=== PATIENT | female | born 1985 | race Caucasian/White ===

== ENCOUNTER 2021-04-10 03:53 | Inpatient (IN) | payer OTHER, SELFPAY ==
[2021-04-10] VITALS (15 sets, daily range): BP systolic 97–121; BP diastolic 55–76; PULSE 69–105; RESP 16–19; TEMP 35.9–37.1; O2SAT 95–99; BMI 27.4
--- NOTE | ~2021-04-10 | CT_ITS ---
EXAMINATION: CT ABDOMEN AND PELVIS WITH CONTRAST CLINICAL INFORMATION: Periumbilical and right lower quadrant pain COMPARISON: None TECHNIQUE: Multidetector volumetric images were obtained from the superior aspect of the liver through the pubic symphysis following administration 85 mL of Omnipaque 350 intravenous contrast. Sagittal and coronal reformatted images were obtained on the technologist's workstation. Oral contrast: No This CT examination was performed using dose optimization techniques as appropriate, variously including the following: *Automated exposure control *Adjustment of mA and/or kV according to patient size (this includes techniques or standardized protocols for targeted exams where dose is matched to indication/reason for exam; i.e. extremities or head) *Use of iterative reconstruction technique DLP: 568 mGy-cm FINDINGS: LUNG BASES: There is bibasilar atelectasis and scarring. LIVER, GALLBLADDER, AND BILIARY TREE: The liver is normal in size, shape, and attenuation. No focal hepatic lesion or biliary ductal dilatation is present. The gallbladder is unremarkable with no evidence of radiopaque gallstones, gallbladder wall thickening, or obvious pericholecystic inflammatory changes. PANCREAS: Unremarkable. SPLEEN: Unremarkable. ADRENAL GLANDS: Unremarkable. KIDNEYS AND URETERS: The kidneys are normal in size, shape, and attenuation. No hydronephrosis, hydroureter, or calculi seen. No perinephric stranding. BLADDER: Unremarkable. GASTROINTESTINAL TRACT: There is scattered stool and gas seen throughout the colon without significant distention. The small bowel loops are normal caliber. The appendix measures 1 cm without appendicolith. There is mild the appendix haziness suspicious for early fat stranding. There is no appendicolith seen. ABDOMINAL WALL: No significant hernia is appreciated. LYMPH NODES: Normal. VASCULAR: Unremarkable. PELVIC VISCERA: A 1.8 cm right adnexal cyst with enhancing wall likely a corpus luteal cyst. There are uterus is retroverted with IUD well located within the endometrial canal. There is no free fluid. The left ovary is grossly unremarkable. OSSEOUS STRUCTURES: Unremarkable. CT/CT abdomen pelvis w con IMPRESSION: 1 cm distended appendix with minimal farhan appendix fat stranding at this time suggestive of early acute appendicitis. No appendicolith seen. Retroverted uterus with IUD within endometrial canal in good position. Small corpus luteal cyst right ovary.
--- NOTE | 2021-04-10 05:11 | ED.ABDPAIN ---
HPI - Abdominal Pain General Chief Complaint: Abdominal Pain Stated Complaint: abdominal pain Time Seen by Provider: 04/10/21 04:59 Source: patient Mode of arrival: ambulatory Limitations: no limitations History of Present Illness HPI narrative: Patient comes emergency room complaining of periumbilical pain and right lower quadrant pain starting last night. Patient states for the last 3 days, she has had multiple episodes of diarrhea, no vomiting, no abdominal pain. Yesterday, patient went out for a walk, when she returned to her house, she noticed that she had periumbilical pain. Patient complaining of nausea, no vomiting, no further diarrhea. Patient denies fever chills, no flank pain MD elicited complaint: abdominal pain Related Data Allergies Allergy/AdvReac Type Severity Reaction Status Date / Time No Known Allergies Allergy Verified 04/10/21 05:09 Review of Systems Review of Systems Constitutional : No Weight loss, No Fever, No Chills, No Night Sweats, No Fatigue, No Malaise ENT/Mouth : No Hearing loss, No Ear Pain, No Nasal Congestion, No Sinus Pain, No Hoarseness, No sore throat, No Rhinorrhea, No Swallowing Difficulty Eyes: No Eye Pain, No Swelling, No Redness, No Foreign Body, No Discharge, No Vision Changes Cardiovascular : No Chest Pain, No SOB, No Dyspnea on Exertion, No Orthopnea, No Edema, No Palpitations Respiratory : No Cough, No Sputum, No Wheezing, No Smoke Exposure, No Dyspnea Gastrointestinal : Complaining of Nausea, No Vomiting, reported several episodes of diarrhea, now resolved, No Constipation, complaining of periumbilical pain and right lower quadrant pain. No Hematochezia, No Melena Genitourinary : no irregular bleeding, No Dysuria, No Urinary Frequency, No Hematuria, No Urinary Incontinence, No Urgency, No Flank Pain, No Urinary Flow Changes, No Hesitancy Musculoskeletal : No joint pain, No Myalgias, No Joint Swelling Skin : No Skin Lesions, No rash Neuro : No Weakness, No Numbness, No Paresthesias, No Loss of Consciousness, No Dizziness, No Headache Psych : No Anxiety/Panic, No Depression, No SI/HI/AH/VH, No Social Issues, Heme/Lymph: No Bruising, No Bleeding,No Lymphadenopathy Endocrine : No Polyuria, No Polydipsia, No Temperature Intolerance Physical Exam Vital Signs: Vital Signs: Last Vital Signs Temp 98.2 F 04/10/21 07:29 Pulse 77 04/10/21 07:29 Resp 17 04/10/21 07:29 BP 104/57 L 04/10/21 07:29 Pulse Ox 98 04/10/21 07:29 Body Mass Index 27.4 Appearance: Alert. Oriented X3. No acute distress. Eyes: Pupils equal, round and reactive to light. ENT: Pharynx normal. Neck: Normal inspection. Neck supple. No lymph nodes noted. No crepitus CVS: Normal heart rate and rhythm. Pulses normal. Normal S1 and S2 Respiratory: No respiratory distress. Breath sounds normal. No Wheezing. No rales Abdomen: Soft tender to palpation over the periumbilical area and right lower quadrant, no guarding, positive rebound tenderness, positive pain at McBurney's point. No rigidity. No distention. Skin: Skin warm and dry. Normal skin color. Normal skin turgor. Extremities: No lower extremity edema. No lower extremity edema. No Lacerations. No Rash Neuro: Oriented X 3. No motor deficit. No sensory deficit. Moving all extermities. No slurred speech. Course Course Course Narrative: CT scan pending, appendicitis suspected. Sign out given to Dr. Wu [facility] - Abdominal Pain Lab Data Result diagrams: 04/10/21 05:24 04/10/21 05:48 Labs: Lab Results 04/10/21 04/10/21 Range/Units 05:24 05:48 WBC 11.6 H (4.8-10.8) X10*3/uL RBC 4.01 L (4.20-5.50) X10*6/uL Hgb 12.7 (12.0-16.0) g/dl Hct 35.7 L (37-47) % MCV 89.0 (80-98) fL MCH 31.7 (27.0-33.0) pg MCHC 35.6 H (31.0-35.0) g/dl RDW 12.5 (11.0-16.0) % Plt Count 252 (160-400) X10*3/uL MPV 10.0 (9.4-12.3) fL Immature Gran % (Auto) 0.4 (0.0-0.4) % Neut % (Auto) 82.8 H (45-73) % Lymph % (Auto) 10.4 L (20-40) % [place] % (Auto) 5.8 (2-11) % Eos % (Auto) 0.3 (0-4) % Baso % (Auto) 0.3 (0-2) % Lymph # (Auto) 1.2 (1.2-4.9) X10*3/uL [place] # (Auto) 0.7 (0.1-1.2) X10*3/uL Eos # (Auto) 0.0 (0.0-0.4) X10*3/uL Baso # (Auto) 0.0 (0.0-0.2) X10*3/uL Abs Immat Gran (auto) 0.05 H (0.00-0.03) X10*3/uL Absolute Neuts (auto) 9.6 H (2.0-8.3) X10*3/uL Absolute Nucleated RBC 0.000 (0.0-0.012) X10*3/uL Nucleated RBC % (auto) 0.0 (0.0-0.2) /100WBC Sodium 136 (135-145) mmol/L Potassium 3.4 (3.3-5.1) mmol/L Chloride 101 (96-108) mmol/L Carbon Dioxide 25 (22-29) mmol/L Anion Gap 13 (12-20) BUN 14 (9-16) mg/dL Creatinine 0.79 (0.5-1.4) mg/dL Estim Creat Clear Calc 97.0 Estimated GFR > 60 Random Glucose 109 (60-115) mg/dL Calcium 9.0 (8.4-10.2) mg/dL Total Bilirubin 1.1 H (0.0-1.0) mg/dL Direct Bilirubin 0.4 (0.0-0.5) mg/dL AST 14 (5-31) U/L ALT 13 (0-31) U/L Alkaline Phosphatase 50 (39-117) U/L Total Protein 6.2 L (6.5-8.0) g/dL Albumin 4.0 (3.5-5.0) g/dL Lipase 9 (8-78) U/L Beta HCG, Quant < 2 mIU/mL [facility] Past Medical History Medical History No known health problems Social History Social History Alcohol intake: never Patient Tobacco Use Status: Never used Tobacco Advance Directives: No Advance Directives Information Provided: No Patient : No
[2021-04-10 05:29] LABS: Basophils Percent Auto 0.3 % (0-2); Eosinophils Percent Auto 0.3 % (0-4); Hematocrit 35.7 % (37-47); Hemoglobin 12.7 g/dl (12.0-16.0); Imm Gran Abs Auto 0.05 X10*3/uL (0.00-0.03); Imm Gran Pct Auto 0.4 % (0.0-0.4); Lymphocytes Absolute Auto 1.2 X10*3/uL (1.2-4.9); Lymphocytes Percent Auto 10.4 % (20-40); MANUAL DIFF FLAG NO; Mean Corpuscular HGB Conc 35.6 g/dl (31.0-35.0); Mean Corpuscular Hemoglobin 31.7 pg (27.0-33.0); Monocytes Absolute Auto 0.7 X10*3/uL (0.1-1.2); Monocytes Percent Auto 5.8 % (2-11); Neutrophils Absolute Auto 9.6 X10*3/uL (2.0-8.3); Neutrophils Percent Auto 82.8 % (45-73); Platelet Count 252 X10*3/uL (160-400); Red Blood Count 4.01 X10*6/uL (4.20-5.50); Red Cell Distribution Width 12.5 % (11.0-16.0); White Blood Count 11.6 X10*3/uL (4.8-10.8)
[2021-04-10] MEDS: 0.9 % Sodium Chloride 1,000 ML 999 ML IVCONT ×2 (05:33→09:36)
[2021-04-10] MEDS: ondansetron HCL 4 MG/2 ML VIAL IVPUSH (05:33)
[2021-04-10] MEDS: Ketorolac Tromethamine 30 MG/ML VIAL IVPUSH (05:33)
--- NOTE | 2021-04-10 05:35 | PC.NURSE ---
PT MEDICATED PER MAR, AWAITING TESTING. AWARE OF PLAN OF CARE.
[2021-04-10 06:21] LABS: Alanine Aminotransferase 13 U/L (0-31); Alkaline Phosphatase 50 U/L (39-117); Anion Gap 13 (12-20); Aspartate Amino Transferase 14 U/L (5-31); Bilirubin Direct 0.4 mg/dL (0.0-0.5); Bilirubin Total 1.1 mg/dL (0.0-1.0); Blood Urea Nitrogen 14 mg/dL (9-16); Carbon Dioxide 25 mmol/L (22-29); Chloride 101 mmol/L (96-108); Estimated Glomerular Filt Rate > 60; Glucose Random 109 mg/dL (60-115); Lipase 9 U/L (8-78); Potassium 3.4 mmol/L (3.3-5.1); Sodium 136 mmol/L (135-145); Total Protein 6.2 g/dL (6.5-8.0)
[2021-04-10 06:27] LABS: HCG Quantitative < 2 mIU/mL
--- NOTE | 2021-04-10 08:09 | PC.NURSE ---
iv to l ac d/c'd by this rn due to puffiness and slight disc. new iv placed to r ac, #20.
[2021-04-10 08:15] LABS: Glucose Urine UA NEG (NEG); Leukocyte Esterase Urine NEG (NEG); Nitrite Urine NEG (NEG); Specific Gravity - Urine >= 1.030 (1.005-1.025); Urine Blood TRACE (NEG); Urine Ketones 5 MG/DL (NEG); Urine Protein NEG (NEG-TRACE)
[2021-04-10 08:19] LABS: UPreg QC Valid YES; Urine Pregnancy NEGATIVE (NEGATIVE)
[2021-04-10 08:20] LABS: Appearance Urine HAZY; Color Urine YELLOW
[2021-04-10 08:25] LABS: Amorphous Sediment Urine 1+ /LPF; Mucus Urine 2+ /LPF; Squamous Epithelial Cell Urine 1+ /LPF; WBC Urine 0 /HPF (0-4)
[2021-04-10] MEDS: iohexoL 350 MG/ML 100 ML INFUS..BTL IV (08:30)
[2021-04-10] MEDS: fentaNYL citrate/PF 100 MCG/2 ML VIAL 25 MCG IVPUSH (09:36)
[2021-04-10] MEDS: Piperacillin Sodium/Tazobactam 3.375 GM in 0.9 % Sodium Chloride 50 ML IV (09:47)
--- NOTE | 2021-04-10 10:05 | HE.PHANOTE ---
Med rec completed As [facility] does not carry the form of methypehnidate she takes at home, pt states she is ok with not taking it while she is in house
--- NOTE | 2021-04-10 10:49 | PC.NURSE ---
pt seen by dr. parsons (surgeon), pt/family aware of plan of care for admission/surgery.
--- NOTE | 2021-04-10 10:57 | PM.HPGS ---
History of Present Illness History of Present Illness Date of Service: 04/10/21 Chief complaint: abdominal pain Narrative: Tracy Castano is a 36 year old female presented with complaints of abdominal pain in the lower abdomen is beginning last night. The pain is now localized to the right lower quadrant associated with nausea and vomiting. She denies anorexia currently a mainly complains of the pain in the right lower quadrant. She presented to the emergency department this morning and was noted to be tender in the right lower quadrant. Laboratories reveal a elevated the WBC of [address] of the abdomen and pelvis revealed inflammation of the appendix without a fecalith or fluid collection. Findings are consistent with early acute appendicitis. She denies a previous history of similar pain. Review of Systems Constitutional: Constitutional: Denies chills, Denies fever(s), Denies headache(s) and Denies poor appetite ENT: Denies dizziness and Denies headache(s) Cardiovascular: Cardiovascular: Denies chest pain, Denies rapid heart rate, Denies palpitations and Denies slow heart rate Respiratory: Respiratory: Denies chest congestion, Denies cough, Denies pain on inspiration and Denies wheezing Gastrointestinal: Gastrointestinal: Denies abdominal pain, Denies bloating, Denies change in stool character, Denies constipation, Denies diarrhea, Denies nausea, Denies vomiting and Denies hematemesis Musculoskeletal: Musculoskeletal: Denies back pain, Denies arthralgias, Denies joint swelling and Denies numbness Integumentary/Breasts: Skin/Breast: Denies change in pigmentation, Denies erythema and Denies rash Neurologic: Denies dizziness, Denies headache(s) and Denies numbness Psychiatric: Psychiatric: Denies anxiety and Denies depression Endocrine: Endocrine: Denies palpitations Hematologic/Lymphatic: Hematologic/Lymphatic: Denies easy bleeding, Denies easy bruising and Denies lymphadenopathy Allergic/Immunologic: Allergic/Immunologic: Denies wheezing PMFSH Past Medical History Medical History No known health problems Social History Social History Alcohol intake: never Patient Tobacco Use Status: Never used Tobacco Advance Directives: No Advance Directives Information Provided: No Patient : No Meds Allergies Allergy/AdvReac Type Severity Reaction Status Date / Time No Known Allergies Allergy Verified 04/10/21 05:09 Active Medications: Current Medications Generic Name Dose Route Start Last Admin Trade Name Freq PRN Reason Stop Dose Admin Pharmacy Consult 1 each 04/10/21 09:29 Consult Rx Perform Med Rec MISCELLANE ONCE PRN Consult order Home Medications Medication Instructions Recorded Confirmed Last Taken Type methylphenidate HCl 1 tab PO QAM 04/10/21 04/10/21 04/08/21 History Physical Exam Vital Signs: Vital Signs: Last Vital Signs Temp 98.6 F 04/10/21 09:48 Pulse 69 04/10/21 10:56 Resp 17 04/10/21 10:56 BP 101/62 04/10/21 10:56 Pulse Ox 99 04/10/21 10:56 Body Mass Index 27.4 Const: General: cooperative, comfortable and well developed Nutritional Appearance: well nourished Orientation/consciousness: patient oriented x3 Eyes: Sclerae: sclerae normal EOM: EOMs intact bilaterally Neck: Neck: Yes normal visual inspection Resp: Effort & Inspection: normal respiratory effort, no cough, no respiratory distress and no stridor Cardio: Jugular venous distension: no JVD GI: Inspection: Yes normal to inspection Palpation (GI): Soft to palpation, Tenderness to palpation present (GI) in the RLQ and at McBurney's point, no guarding, not rigid and No Rebound tenderness present Skin: General skin exam: dry skin Rashes: no rashes Neuro: General: patient oriented x3 and no focal motor deficits Extrem: General: Yes full ROM and Yes no clubbing, cyanosis or edema Psych: Appearance: grossly normal Results Results Labs: Short CBC 04/10/21 Range/Units 05:24 WBC 11.6 H (4.8-10.8) X10*3/uL Hgb 12.7 (12.0-16.0) g/dl Hct 35.7 L (37-47) % Plt Count 252 (160-400) X10*3/uL BMP 04/10/21 05:48 Sodium 136 Potassium 3.4 Chloride 101 Carbon Dioxide 25 BUN 14 Creatinine 0.79 Calcium 9.0 Liver Function 04/10/21 Range/Units 05:48 Total Bilirubin 1.1 H (0.0-1.0) mg/dL Direct Bilirubin 0.4 (0.0-0.5) mg/dL AST 14 (5-31) U/L ALT 13 (0-31) U/L Alkaline Phosphatase 50 (39-117) U/L Albumin 4.0 (3.5-5.0) g/dL Urine 04/10/21 04/10/21 Range/Units 08:02 08:02 Urine Color YELLOW Urine Appearance HAZY Urine pH 6.0 (5.0-8.0) Ur Specific [place] >= 1.030 H (1.005-1.025) Urine Protein NEG (NEG-TRACE) MG/DL Urine Glucose (UA) NEG (NEG) MG/DL Urine Test NEGATIVE (NEGATIVE) Assessment and Plan (1) Acute appendicitis: Qualifiers: Acute appendicitis type: with localized peritonitis Appendicitis abscess presence: without abscess Appendicitis gangrene presence: without gangrene Appendicitis perforation presence: without perforation Qualified Code(s): K35.30 - Acute appendicitis with localized peritonitis, without perforation or gangrene Status: Acute 36-year-old female patient previously healthy presenting with complaints of abdominal pain of 24 hours duration. Pain is mainly located in the right lower quadrant and is associated with nausea and vomiting. Workup including CT of the abdomen and pelvis reveals a thickened appendix suggestive of acute appendicitis. We discussed options for management of early acute appendicitis including IV antibiotics verses laparoscopic or possible open appendectomy. After discussion of the risks, alternatives, and benefits, she wishes to proceed with a laparoscopic or possible open appendectomy. After discussion of the procedure, risks and alternatives, she consents to the surgery. She will be added onto the operative schedule for today. Procedures Date of Service Date of Service: 04/10/21
--- NOTE | 2021-04-10 11:02 | MHC.SHP ---
Pre-Procedural Eval Section A The patient is an INPATIENT: Yes Section B Chief Complaint: abdominal pain Allergies: Allergies Allergy/AdvReac Type Severity Reaction Status Date / Time No Known Allergies Allergy Verified 04/10/21 05:09 Plan Diagnosis/Plan: Unchanged I have reviewed the history and physical and performed a pertinent physical examination on my patient. No changes have occurred unless specified.
[2021-04-10 11:48] LABS: INTERNATIONAL NORM RATIO 1.1 (0.9-1.1); Prothrombin Time 13.4 SEC (10.8-13.0)
[2021-04-10 11:51] LABS: Partial Thromboplastin Time 31.7 SEC (24.1-38.0)
[2021-04-10 12:13] LABS: COVID-19 Test Negative (Negative); IDNOW Serial# 9DD0AD1C
--- NOTE | 2021-04-10 13:14 | PC.NURSE ---
nurse to nurse given to rabia (pacu), pt/family aware of plan of care for surgery later today.
--- NOTE | 2021-04-10 13:17 | PC.NURSE ---
pt last meal was 1600 yesterday 04/09/21
--- NOTE | 2021-04-10 13:28 | PC.NURSE ---
nurse to nurse given to stuart rn, pt/ aware of plan of care for admission/surgery.
--- NOTE | 2021-04-10 14:02 | PC.NURSE ---
this rn spoke with leslie fowler (rn) who was asked to update stuart (rn) that the pt went to pre-op (pacu) for surgery then pt will be transferred to the floor.
--- NOTE | 2021-04-10 14:24 | HO.ANESPROP2 ---
[facility] Active Problems Active Problems: All Active Problems (Updated 04/10/21 @ 09:33 by Nadia Wu DO) Acute appendicitis (Acute) Past Medical History Medical History No known health problems Social History Social History Alcohol intake: never Patient Tobacco Use Status: Never used Tobacco Use of substances other than those prescribed or required for medical reasons: No Are you DNR?: No Advance Directives: No Advance Directives Information Provided: No Patient : No Meds Allergies Allergy/AdvReac Type Severity Reaction Status Date / Time No Known Allergies Allergy Verified 04/10/21 05:09 Active Medications: Current Medications Generic Name Dose Route Start Last Admin Trade Name Freq PRN Reason Stop Dose Admin Pharmacy Consult 1 each 04/10/21 09:29 Consult Rx Perform Med Rec MISCELLANE ONCE PRN Consult order Home Medications Medication Instructions Recorded Confirmed Last Taken Type methylphenidate HCl 1 tab PO QAM 04/10/21 04/10/21 04/08/21 History Exam Exam Date and Time: April 10, 2021 1424 Height,Weight and Vital Signs: Height 5 ft 4 in Weight 72.575 kg Last Vital Signs Temp 97.5 F 04/10/21 14:13 Pulse 71 04/10/21 14:13 Resp 16 04/10/21 14:13 BP 104/67 04/10/21 14:13 Pulse Ox 98 04/10/21 14:13 Pertinent Lab Results Pertinent Lab Results: Laboratory Tests 04/10/21 04/10/21 04/10/21 05:24 05:48 08:02 WBC 11.6 H RBC 4.01 L Hgb 12.7 Hct 35.7 L MCV 89.0 MCH 31.7 MCHC 35.6 H RDW 12.5 Plt Count 252 MPV 10.0 Immature Gran % (Auto) 0.4 Neut % (Auto) 82.8 H Lymph % (Auto) 10.4 L [place] % (Auto) 5.8 Eos % (Auto) 0.3 Baso % (Auto) 0.3 Lymph # (Auto) 1.2 [place] # (Auto) 0.7 Eos # (Auto) 0.0 Baso # (Auto) 0.0 Abs Immat Gran (auto) 0.05 H Absolute Neuts (auto) 9.6 H Absolute Nucleated RBC 0.000 Nucleated RBC % (auto) 0.0 PT INR APTT Sodium 136 Potassium 3.4 Chloride 101 Carbon Dioxide 25 Anion Gap 13 BUN 14 Creatinine 0.79 Estim Creat Clear Calc 97.0 Estimated GFR > 60 Random Glucose 109 Calcium 9.0 Total Bilirubin 1.1 H Direct Bilirubin 0.4 AST 14 ALT 13 Alkaline Phosphatase 50 Total Protein 6.2 L Albumin 4.0 Lipase 9 Beta HCG, Quant < 2 Urine Color YELLOW Urine Appearance HAZY Urine pH 6.0 Ur Specific [place] >= 1.030 H Urine Protein NEG Urine Glucose (UA) NEG Urine Ketones 5 Urine Blood TRACE Urine Nitrite NEG Ur Leukocyte Esterase NEG Urine RBC 1-4 Urine WBC 0 Ur Squamous Epith Cells 1+ Amorphous Sediment 1+ Urine Bacteria NONE Urine Mucus 2+ Urine Test COVID-19 (RAY) COVID-[place] 04/10/21 04/10/21 04/10/21 08:02 11:34 11:37 WBC RBC Hgb Hct MCV MCH MCHC RDW Plt Count MPV Immature Gran % (Auto) Neut % (Auto) Lymph % (Auto) [place] % (Auto) Eos % (Auto) Baso % (Auto) Lymph # (Auto) [place] # (Auto) Eos # (Auto) Baso # (Auto) Abs Immat Gran (auto) Absolute Neuts (auto) Absolute Nucleated RBC Nucleated RBC % (auto) PT 13.4 H INR 1.1 APTT 31.7 Sodium Potassium Chloride Carbon Dioxide Anion Gap BUN Creatinine Estim Creat Clear Calc Estimated GFR Random Glucose Calcium Total Bilirubin Direct Bilirubin AST ALT Alkaline Phosphatase Total Protein Albumin Lipase Beta HCG, Quant Urine Color Urine Appearance Urine pH Ur Specific [place] Urine Protein Urine Glucose (UA) Urine Ketones Urine Blood Urine Nitrite Ur Leukocyte Esterase Urine RBC Urine WBC Ur Squamous Epith Cells Amorphous Sediment Urine Bacteria Urine Mucus Urine Test NEGATIVE COVID-19 (RAY) Negative COVID-19 [employer] See Note Airway Mallampati Class: I TM Dist: >3cm Neck ROM: Full Loose/Missing/Broken Teeth: No Heart: RRR Lungs: CTA Assessment and Plan Assessment Anesthesia Assessment: Anesthesia Plan Discussed and Chart Reviewed Final Anesthetic Review NPO: Yes ASA Class: I Final Preanesthetic Review: Meds/Allgs Chart Reviewed, Consent Obtained/Reviewed and Anes Risks/Benef Reviewed Patient Risk: Low Procedure Risk: Intermediate Anesthetic Plan Anesthetic Plan: GA Disposition: Standard PACU
--- NOTE | 2021-04-10 16:21 | P.OP_ITS ---
Operative Note Operative Note Date of Service: 04/10/21 Narrative: Preoperative diagnosis: Acute appendicitis Postoperative diagnosis: Same Procedure: Laparoscopic appendectomy Surgeon: Stone Sampson MD Past Due Accounts Clerk: No physician Anesthesia: General endotracheal Indications for procedure: 36-year-old female patient presenting with complaints of abdominal pain in the right lower quadrant found to have acute appendicitis by CT abdomen pelvis. Operative findings: Acute appendicitis without rupture or abscess Specimen: Appendix Estimated blood loss: 2 mL Complications: None Procedure details: Patient was brought to the OR and placed in a supine position. After administering general anesthesia the patient's abdomen was prepped with ChloraPrep and draped in a sterile fashion. A surgical time-out was called and consent confirmed. Patient received preoperative antibiotics and Venodyne boots were in place. Local anesthesia consisting of 0.25% Sensorcaine with epinephrine was infiltrated in periumbilical region. A 5 mm incision was made below the umbilicus and carried down through subcutaneous tissue. A Veress needle was then inserted while elevating abdominal cavity with towel clips. After a positive drop test the abdomen was insufflated to a pressure of 15 mm of mercury. The Veress needle was removed and a 5 mm trocar inserted. The camera was then inserted in the abdomen explored. A 2nd 5 mm trocars placed in the lower midline. A 12 mm trocar was then placed in the left lower quadrant. The patient was then placed in a Trendelenburg position and rotated to the left. The appendix was identified in the right lower quadrant and brought up using blunt dissecting clamps. The mesentery of the appendix was then divided using the LigaSure. The appendiceal artery was cauterized and divided using the LigaSure. Dissection was continued down to the base of the cecum. An Endo-FRANK stapler with a purple reload was then used to divide the appendix at the base with the cecum. The appendix was then placed in Endo-Catch bag and brought out through the left lower quadrant incision. The abdomen was then irrigated with saline solution and suctioned dry. Wounds were checked for hemostasis. CO2 was then evacuated from the abdominal cavity and all trocars removed. Skin was closed at all incisions using a subcuticular 4-0 Polysorb suture. Steri- Strips 2 x 2 gauze and Tegaderm were then applied. The patient tolerated the procedure well. Sponge, instrument, needle counts reported as correct. The patient was transferred to PACU in stable condition.
[2021-04-10] MEDS: Lactated Ringers 1,000 ML 100 ML IVCONT (17:09)
[2021-04-10] MEDS: 0.9 % Sodium Chloride Flush 3 ML SYRINGE IVFLUSH (17:10)
[2021-04-10] MEDS: oxyCODONE HCl Immed Release 5 MG TABLET PO (18:05)
[2021-04-11] VITALS: BP 94/53; PULSE 73; RESP 16; TEMP 36.3; O2SAT 96
[2021-04-11] MEDS: Lactated Ringers 1,000 ML 100 ML IVCONT (02:29)
[2021-04-11 03:02] VITALS: BP 103/55; PULSE 69; RESP 16; TEMP 36.4; O2SAT 96
[2021-04-11] MEDS: oxyCODONE HCl Immed Release 5 MG TABLET PO (03:09)
[2021-04-11 04:51] VITALS: RESP 20
[2021-04-11 08:00] VITALS: BP 105/69; PULSE 70; RESP 16; TEMP 36.3; O2SAT 94
--- NOTE | 2021-04-11 08:02 | P.DS_ITS ---
DS: Providers Provider Date of Service: 04/11/21 Date of admission: 04/10/21 11:08 Date of discharge: 04/11/21 Primary care physician: Eliseo Physician Admitting clinician: Stone Sampson Discharging clinician: Stone Sampson DS: Diagnosis Discharge Diagnosis (1) Acute appendicitis: Status: Acute DS: Medications Discharge Medications Home Medications: Home Medications Medication Instructions Recorded Confirmed methylphenidate HCl 1 tab PO QAM 04/10/21 04/10/21 Previous Rx's Medication Instructions Recorded oxycodone 5 mg PO Q6H PRN #14 tab 04/11/21 DS: Summary Hospital Course Hospital Course: Tracy Castano is a 36 year old female presented with complaints of abdominal pain in the lower abdomen is beginning of 1 day duration. The pain was localized to the right lower quadrant associated with nausea and vomiting. She denied anorexia and mainly complained of the pain in the right lower quadrant. She presented to the emergency department on 04/10/2021 and was noted to be tender in the right lower quadrant. Laboratories reveal a elevated the WBC of [address] of the abdomen and pelvis revealed inflammation of the appendix without a fecalith or fluid collection. Findings are consistent with early acute appendicitis. She denies a previous history of similar pain. The patient was admitted to the surgical service and arrangements made for a laparoscopic appendectomy. This was performed on the day of admission, 04/10/2021. Operative findings were consistent with acute appendicitis without rupture. She tolerated the laparoscopic appendectomy well and was able to tolerate a regular diet on the evening of surgery. She denied nausea or vomiting. On postoperative day 1, the patient is awake and alert with minimal incisional pain. She tolerated regular diet without nausea or vomiting and denied fever or chills. She was able to ambulate and is comfortable on oral pain medications. Patient is to be discharged to home today and will follow up in the office in approximately 1 week for wound examination. She should call for fever, chills, nausea, vomiting, or increased abdominal pain. Time Spent with Patient Time attestation: Total time spent providing and/or coordinating discharge services: Discharge coordination time: Less than 30 minutes Quality: Stroke Does the patient have a stroke diagnosis?: No Physical Exam Vital Signs: Vital Signs: Last Vital Signs Temp 97.5 F 04/11/21 03:02 Pulse 69 04/11/21 03:02 Resp 20 06/03/21 04:51 BP 103/55 L 04/11/21 03:02 Pulse Ox 96 04/11/21 03:02 Body Mass Index 27.4 Const: General: cooperative, comfortable and well developed GI: Other: Incisions clean, dry, and intact. Inspection: Yes normal to inspection Skin: Other: Warm, dry, no rash Extrem: General: Yes no clubbing, cyanosis or edema DS: Data Data Completed and Pending Pending studies at discharge: Pending at discharge 04/10/21 16:03 Surgical [PTH] Routine Labs on day of discharge: Laboratory Results - last 24 hr 04/10/21 04/10/21 04/10/21 08:02 08:02 11:34 PT INR APTT Urine Color YELLOW Urine Appearance HAZY Urine pH 6.0 Ur Specific [place] >= 1.030 H Urine Protein NEG Urine Glucose (UA) NEG Urine Ketones 5 Urine Blood TRACE Urine Nitrite NEG Ur Leukocyte Esterase NEG Urine RBC 1-4 Urine WBC 0 Ur Squamous Epith Cells 1+ Amorphous Sediment 1+ Urine Bacteria NONE Urine Mucus 2+ Urine Test NEGATIVE COVID-19 (RAY) Negative COVID-19 Clin Com See Note 04/10/21 11:37 PT 13.4 H INR 1.1 APTT 31.7 Urine Color Urine Appearance Urine pH Ur Specific [employer] [place] Urine Protein Urine Glucose (UA) Urine Ketones Urine Blood Urine Nitrite Ur Leukocyte Esterase Urine RBC Urine WBC Ur Squamous Epith Cells Amorphous Sediment Urine Bacteria Urine Mucus Urine Test COVID-19 (RAY) COVID-19 Clin Com Discharge Plan Discharge Patient Disposition: Home, Self-Care Discharge Diagnosis: Acute appendicitis Referrals: Stone Sampson MD [Physician] - 1 Week Physician,None [Primary Care Provider] - 1 Week Discharge Medications: New oxycodone 5 mg tablet 5 mg PO Q6H PRN (Reason: pain) Qty: 14 RF: 0 Continued methylphenidate HCl 36 mg tablet extended release 24hr 1 tab PO QAM RF: 0 Discharge Orders: Discharge Order (Routine); Ordered 04/11/21 Ordered By: Stone Sampson Diet: advance to usual diet Activity on Discharge: No heavy lifting Stand Alone Forms: Patient Portal Discharge page Activity Restrictions/Additional Instructions: No lifting > 10 pounds for 2 weeks No driving for one week Ice to the incision x 24 hours Remove dressing in 3 days Follow up in office in one week. Care Plan Goals: Return to normal diet and activity Health Concerns: Acute appendicitis Plan of Treatment: Laparoscopic appendectomy on 04/10/2021 Assessment: Acute appendicitis Patient Instructions: Laparoscopic Appendectomy (DC) Discharge Date/Time: 04/11/21 09:15
--- NOTE | 2021-04-11 08:02 | P.PNGS_ITS ---
Subjective Subjective Date of Service: 04/11/21 Interval history: Patient awake and alert, reports mild incisional pain but generally feels improved. Denies nausea or vomiting. Was able to tolerate a regular diet last night without increased symptoms. Physical Exam Vital Signs: Vital Signs: Last Vital Signs Temp 97.5 F 04/11/21 03:02 Pulse 69 04/11/21 03:02 Resp 20 04/11/21 04:51 BP 103/55 L 04/11/21 03:02 Pulse Ox 96 04/11/21 03:02 Body Mass Index 27.4 Const: General: cooperative, healthy appearing, comfortable, no acute distress, alert and awake Resp: Effort & Inspection: normal respiratory effort, no stridor and not tachypneic Auscultation: no wheezes GI: Other: Incisions in the lower abdomen are clean, dry, and intact. No redness or discharge. Skin: Other: Warm, dry, no rash Extrem: General: Yes normal to inspection Progress Note: A&P Assessment and plan (1) Acute appendicitis: Status: Acute Assessment and Plan: Patient is postoperative day 1 status post laparoscopic appendectomy. She tolerated the procedure well and her wounds are healing nicely. She will be discharged to home today and should follow up in the office in approximately 1 week. A prescription for oxycodone has been sent to her pharmacy. She should avoid lifting greater than 10 lb for the next 2 weeks. She may resume regular diet as tolerated. She should return for fever, chills, nausea, vomiting, or increased abdominal pain. Fall Risk Details Current Medications: Current Medications Generic Name Dose Route Start Last Admin Trade Name Freq PRN Reason Stop Dose Admin Acetaminophen 650 mg 04/10/21 17:00 Acetaminophen 325 Mg Tablet PO Q6H PRN Pain, Mild (Pain Scale 1-3) Lactated Ringer's 1,000 mls @ 100 mls/hr 04/10/21 17:00 04/11/21 02:29 Lr IVCONT 100 mls/hr .Q10H CHAN Administration Morphine Sulfate 3 mg 04/10/21 17:00 Morphine Sulfate 4 Mg/Ml Cartridge IVPUSH Q3H PRN Pain, Severe (Pain Scale 7-10) Ondansetron HCl 4 mg 04/10/21 17:00 Ondansetron Hcl 4 Mg/2 Ml Vial IVPUSH Q8H PRN Nausea and Vomiting Oxycodone HCl 5 mg 04/10/21 17:00 04/11/21 03:09 Oxycodone Hcl Immed Release 5 Mg Tablet PO 5 mg Q6H PRN Administration Pain, Moderate (Pain Scale 4-6 Pharmacy Consult 1 each 04/10/21 09:29 Consult Rx Perform Med Rec MISCELLANE ONCE PRN Consult order Sodium Chloride 3 ml 04/10/21 17:00 04/11/21 07:24 0.9 % Sodium Chloride Flush 3 Ml Syringe IVFLUSH Not Given QSHIFT [facility] Zolpidem Tartrate 5 mg 04/10/21 17:00 Zolpidem Tartrate 5 Mg Tablet PO BEDTIME PRN Insomnia Time Spent With Patient Time: Total time spent is greater than 50% in coordination of care (as documented) at patient's floor/unit and/or counseling patient: Time with patient: 15 - 24 minutes Procedures Date of Service Date of Service: 04/11/21
--- NOTE | 2021-04-11 08:14 | MHC.CM.PN ---
PT WILL DC HOME TODAY WITH NO SERVICES
--- NOTE | 2021-04-12 06:40 | HO.POSTANES ---
Post Anesthesia Evaluation Post Anesthesia Evaluation Vital Signs: patient seen 04/11/21 at 730am Anesthesia: General Endotracheal-GETA Mental Status: Awake Pain Control: Satisfactory Nausea/Vomiting: None Hydration: Adequate Anesthesia-Related Issues: No Anes. Related Issues
== END 2021-04-11 09:15 | disposition home or self-care (01) | DRG 234 ==
LOC: HO.ED 10:55 → HO.EDOVER 11:47 → HO.S3 12:38
PROVIDERS: Emergency Medicine; Admitting Provider Surgery; Emergency Provider Emergency Medicine; Visit Provider Surgery
PROC: 0DTJ4ZZ Resection of Appendix, Percutaneous Endoscopic Approach (ICD-10-PCS; CPT 44970; principal; 2021-04-10 14:50)
DX: K35.30 Acute appendicitis with localized peritonitis, without perforation or gangrene (principal); Z20.822 Contact with and (suspected) exposure to COVID-19; Z79.899 Other long term (current) drug therapy
CPT/HCPCS: 44970; 36415; 74177; 80048; 80076; 81001; 81025; 83690; 84702; 85025; 85610; 85730; 87635; 88304; 96365; 96375; 99024; 99285; J0131; J1100; J1885; J2250; J2405; J2543; J3010; Q9967

== ENCOUNTER → 2021-04-18 09:46 | Outpatient (BNVA) | payer OTHER, SELFPAY | PROVIDERS: Visit Provider Surgery ==

== ENCOUNTER 2025-05-17 08:26 | Emergency (ER) | payer OTHER, SELFPAY ==
--- NOTE | ~2025-05-17 | XR_ITS ---
EXAMINATION: XR FOOT 1-2 VIEWS RIGHT HISTORY: laceration, no movement COMPARISON: There are no prior studies available for comparison. FINDINGS: Three views of the right foot are submitted. Osseous mineralization is normal. There is no fracture or dislocation. The joint spaces are preserved. The soft tissues are unremarkable. XR/XR foot RT 2V IMPRESSION: Unremarkable examination of the right foot. Electronically signed by: Jorge A Marcos MD 05/17/2025 09:35 AM EDT
[2025-05-17 08:35] VITALS: BP 139/83; PULSE 88; RESP 16; TEMP 36.4; O2SAT 98; BMI 25.1
--- NOTE | 2025-05-17 09:42 | ED_ITS ---
HPI - General Adult General Chief complaint: Extremity Injury, Lower Stated complaint: Foot injury Time Seen by Provider: 05/17/25 09:36 Source: patient Mode of arrival: ambulatory Limitations: no limitations History of Present Illness ED Provider: Viktoria Martinez PA-C HPI narrative: Patient is a 40 year old assigned female at with no reported medical history presenting to the emergency department today with worsening left foot pain / loss of great toe function. Patient states that on 05/13/2025 she dropped a kitchen knife on her left foot and went to an urgent care where she had 3 sutures placed. Patient states that since then her left great toe has had decreased ROM and the pain continues. Patient denies any dizziness, lightheadedness, abdominal pain, nausea, vomiting, fever, chills, blurry vision, double vision, loss of vision, chest pain, difficulty breathing, shortness of breath, back pain, night sweats, pain with urination, increased urinary frequency, increased urinary urgency, blood in her urine or stool, syncope or a near syncopal episode, bowel incontinence, bladder incontinence, or any other complaints at this time. Patient denies any discharge from the repaired area. Onset (ago): day(s) (4) Location: left and lower extremity Relieving factors: none Exacerbating factors: none Associated symptoms: denies other symptoms Related Data Home Medications ?Medication ?Instructions ?Recorded ?Confirmed methylphenidate HCl 36 mg 1 tab PO QAM 04/10/21 tablet,extended release 24 hr Allergies Allergy/AdvReac Type Severity Reaction Status Date / Time No Known Allergies Allergy Verified 05/17/25 08:35 Review of Systems 2 Constitutional: Constitutional: Reports no additional constitutional complaints, Denies chills, Denies fever(s) and Denies night sweats Eyes: Eyes: Reports no additional eye complaints, Denies blurry vision, Denies change in vision, Denies diplopia, Denies eye discharge, Denies loss of vision and Denies eye pain ENT: Denies dizziness Cardiovascular: Cardiovascular: Reports no additional cardiovascular complaints, Denies chest pain, Denies lightheadedness, Denies Loss of Consciousness and Denies dyspnea Respiratory: Respiratory: Reports no additional respiratory complaints and Denies dyspnea Gastrointestinal: Gastrointestinal: Reports no additional gastrointestinal complaints, Denies abdominal pain, Denies melena, Denies hematochezia, Denies change in bowel habits and Denies change in stool character Genitourinary: Genitourinary: Denies hematuria, Denies urinary frequency, Denies dysuria, Denies urinary incontinence, Denies urinary hesitancy and Denies urinary urgency Musculoskeletal: Musculoskeletal: Reports no additional musculoskeletal complaints, Denies numbness and Denies tingling Comments: left foot pain decreased ROM of the left great toe Neurologic: Denies dizziness, Denies loss of vision, Denies numbness and Denies tingling Psychiatric: Psychiatric: Reports no additional psychiatric complaints Endocrine: Endocrine: Reports no additional endocrine complaints Hematologic/Lymphatic: Hematologic/Lymphatic: Reports no additional hematologic/lymphatic complaints Allergic/Immunologic: Allergic/Immunologic: Reports no additional allergic/immunologic complaints [facility] Past Medical History Attestation statement: The following information was validated with the patient. Source: old records reviewed and nursing notes reviewed Medical History No known health problems Surgical History S/P laparoscopic appendectomy (04/10/21) Social History Social History Household Members: Spouse Housing: House Alcohol intake: never Patient Tobacco Use Status: Never used Tobacco Advance Directives: No Advance Directives Information Provided: Yes Physical Exam ED Vital Signs: Vital Signs - 24 hr 05/17/25 08:35 Temperature 97.5 F Pulse Rate 88 Respiratory Rate 16 Blood Pressure 139/83 Pulse Oximetry 98 Oxygen Delivery Method Room Air BMI result Body Mass Index 25.1 Const General: cooperative, no acute distress, alert and awake Nutritional Appearance: well nourished Orientation/consciousness: patient oriented x3 HENMT Head: Yes normal to inspection and Yes atraumatic Ears: hearing grossly normal bilaterally and external ears normal General nose exam: Normal external nose present, no nasal discharge noted and no epistaxis Face and sinus: Yes normal facial exam, No abrasion and No laceration Mouth: Normal oral and palatal mucosa present, no drooling and no muffled voice Eyes General: appearance normal, both eyes and all related structures Periorbital: periorbital findings normal Eyelids: Yes eyelids normal Conjunctivae: conjunctivae normal Pupils: Equal, round and reactive pupils present EOM: EOMs intact bilaterally Neck Neck: Yes normal visual inspection, Yes full ROM and Yes no lymphadenopathy Resp Effort & Inspection: normal respiratory effort and able to speak in complete sentences Neuro General: patient oriented x3, moves all extremities and CN's II-XI intact bilaterally Cranial nerves: Yes Equal, round and reactive pupils present Cognition (Neuro): normal cognition Extrem Other: Inability to flex the left great toe intact sensation to the left great toe normal ROM and sensation of the left 2nd-5th toes General: Yes capillary refill normal Psych Appearance: grossly normal Mental Status: mental status grossly normal Affect: normal affect Attitude: cooperative Thought process: Normal thought process present Thought content: Normal thought content present Insight: Good insight present (Psych) Procedures Orthopedic Splinting/Casting Injury #1: Side: left Lower Extremity Injury Location: foot Lower Extremity Immobilizer: boot orthosis Medical Decision Making Medical Decision Making MDM Narrative: Patient is a 40 year old assigned female at with no reported medical history presenting to the emergency department today with worsening left foot pain / loss of great toe function. Patient's physical exam was as noted in the physical exam portion of this note. Patient's left foot x-ray showed no acute process. Patient's clinical presentation is most consistent with a left foot tendon injury. I spoke with the orthopedic team who agreed with my plan of a short walking boot and following up on an outpatient basis with their office. I explained my physical exam findings as well as all test results to the patient. I answered all questions asked by the patient. Patient's left foot was placed in a walking boot, without incident. Patient's PMS was the same prior to and after boot placement. I stressed the importance of the patient taking her medication as directed (either prescribed or as the over the counter packaging recommends). I stressed the importance of the patient following up with her primary care provider and the orthopedic team. I stressed the importance of the patient returning to the emergency department immediately if her symptoms were to worsen or if she were to develop any dizziness, shortness of breath, difficulty breathing, chest pain, blurry vision, loss of vision, nausea, vomiting, abdominal pain, fever, chills, back pain, or any other complaints. Patient verbalized agreement and understanding with this treatment plan and discharge. Differential Diagnosis Differential Diagnoses: The differential diagnosis associated with the presentation includes Left foot tendon injury Left foot pain Admission/Observation Consideration of admission/observation: Escalation of care including admission/observation considered Patient would have been admitted to the hospital had her work up had any findings where hospital admission was appropriate and her clinical presentation warranted hospital admission. 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 ) Independent Interpretation I performed an independent interpretation of an: Plain X-Ray Interpretation: My interpretation is in agreement with the radiologist's impression of this imaging study. L EXAMINATION: XR FOOT 1-2 VIEWS RIGHT HISTORY: laceration, no movement COMPARISON: There are no prior studies available for comparison. FINDINGS: Three views of the right foot are submitted. Osseous mineralization is normal. There is no fracture or dislocation. The joint spaces are preserved. The soft tissues are unremarkable. XR/XR foot RT 2V IMPRESSION: Unremarkable examination of the right foot. Electronically signed by: Jorge A Marcos MD 05/17/2025 09:35 AM EDT RP Dictated By: Jorge A Marcos MD Signed By: Electronically signed by Jorge A Marcos MD 05/17/25 0906 Radiology Impression Discussion of test interpretation with radiology: I have reviewed the radiologist's reading. Discharge Plan Discharge Clinical Impression: Injury of tendon of foot Patient Disposition: Home, Self-Care Instructions: Walking Boot (ED) Additional Instructions: Wear you walking boot when ambulating - make sure to elevate when stationary. Follow up with your primary care provider and the orthopedic team. Return to the emergency department immediately if your symptoms worsen or if you develop any numbness, tingling, dizziness, shortness of breath, difficulty breathing, chest pain, blurry vision, loss of vision, nausea, vomiting, abdominal pain, fever, chills, back pain, or any other complaints. Please see the information below about our Patient Portal. If you are not yet enrolled in the [facility] Patient Portal, you will receive an enrollment email invitation following your visit to any [facility] [place] setting. You may also self-enroll in the Patient Portal by visiting our website: [email or web address] The following information is required to access the Patient Portal: - Your [facility] Medical Record Number - Your personal home email address (must match what is in your electronic medical record, Registration staff can assist with this) - Name - Date of Capabilities of the Patient Portal: - Message some providers - View upcoming appointments - Access your health summary, medical history, and visit history - View current conditions and allergies - View procedure and lab results - View your medications, including guidelines, side effects, and precautions - Complete pre-appointment questionnaires requested by your provider - Ready summary reports of your office visits and procedures To access the Patient Portal Mobile [employer], follow these directions: - Search Myze in the [employer] Store or [employer] Store - Download the [employer] - Search for [facility] - Enter your login/password Prescriptions: No Action methylphenidate HCl 36 mg tablet extended release 24hr 1 tab PO QAM Referrals: [facility] Orthopedic Surgeons [Provider Group] Referral Note: Call to establish and follow up with the orthopedic team for your possible left foot tendon injury. Group,[facility] [Primary Care Provider, Primary Care] Stand Alone Forms: Work/School Release Print Language: Turkmen
[2025-05-17 10:25] VITALS: BP 139/83; PULSE 88; RESP 16; TEMP 36.4; O2SAT 98
== END 2025-05-17 10:26 | disposition home or self-care (01) ==
PROVIDERS: Emergency Provider Emergency Medicine
DX: S96.901A Unspecified injury of unspecified muscle and tendon at ankle and foot level, right foot, initial encounter (principal); M79.671 Pain in right foot; X58.XXXA Exposure to other specified factors, initial encounter; Y93.9 Activity, unspecified; Y92.9 Unspecified place or not applicable; Y99.8 Other external cause status; Z79.899 Other long term (current) drug therapy
CPT/HCPCS: 73620; 99283; 99284

== ENCOUNTER → 2025-05-17 08:31 | Outpatient (BNV) | payer OTHER, SELFPAY | PROVIDERS: Emergency Provider Emergency Medicine; Visit Provider Radiology Diagnostic Radiology | DX: S91.311A Laceration without foreign body, right foot, initial encounter (principal) | CPT/HCPCS: 73620 ==